=== PATIENT | female | born 1945 | race Caucasian/White ===

== ENCOUNTER → 2017-03-18 | Outpatient (CLI) | payer OTHER, MEDICARE ==
[~2017-03-18] MED LIST: ALBUTEROL2.5 MG/31 INH; ASPIRIN EC81 M1 PO; ATIVAN2 MG PO; ATORVASTATIN CA80 MG PO; AZITHROMYCIN 2250 MG PO; BENADRYL25 MG PO; BREO ELLIPTA 11 EACH INH; CEFTIN500 MG PO; CENTRUM SILVER1 EAC4 PO; CITRACAL + D C1 EACH PO; CITRACAL + D M1 EACH PO; CYMBALTA30 MG PO; ENDOCET 5-3251 EACH; FISH OIL 1,0001 EAC5 PO; FLONASE 0.05%50 MCG NASAL; HYDROCODONE-AP1 EAC6 PO; LEVAQUIN 500 M500 M2; LOSARTAN POTASS50 MG PO; LUBRICANT EYE3.5 G1; METHOCARBAMOL750 MG PO; MUCINEX TA600 MG/TA2 PO; MULTIVITAMINS1 EAC7 PO; OMEPRAZOLE40 MG PO; OXYCODONE-APAP1 EAC6 PO; PREDNISONE 2.52.5 M1 PO; PREDNISONE 5 MG5 M1 PO; SINGULAIR 10 MG10 M1 PO; SPIRIVA INH; SYMBICORT160 MCG/4. INH; TOLNAFTATE; TRAMADOL HCL50 MG PO; TRIAMCINOLONE A15 G2 TP; VITAMIN D31000 UNI2 PO; VITAMIN D400 UNI1 PO; VITAMINC500 PO; XOPENEX HF1 UDINHALE INH; XOPENEX1.25 MG/3 IH
== END ==
LOC: RAD 12:59
DX: M47.896 Other spondylosis, lumbar region (principal)

== ENCOUNTER → 2018-05-26 | Outpatient (CLI) | payer OTHER, MEDICARE | LOC: RAD 10:59 | DX: Z12.31 Encounter for screening mammogram for malignant neoplasm of breast (principal) ==